=== PATIENT | female | born 1955 | race Two or more races ===

== ENCOUNTER → 2016-11-29 | Outpatient (CLI) | payer MEDICARE, OTHER ==
--- NOTE | ~2016-11-29 | CR63 ---
[facility] A Service of [facility] [place] RADIOLOGY TEXT RESULTS PATIENT: RAY ALCANTARA LOCATION: [facility] : 59 UNIT #: [id number] AGE: [address]: PASCUAL QUINTERO APRN SEX: F ORDER DR: [id number] [id number] [facility]. [place], [place] [address] [id number] O MR#: [id number] Acc #: [id number] NAME: RAY ALCANTARA : 1955 SEX: F STUDY DATE/TIME: 11/29/2016 9:38 UNIT: [facility] ROOM: STUDY DESCRIPTION: CR Chest 2 View Attending Physician: Marisol Quintero Aprn Referring Physician: Marisol Quintero Aprn Ordering Physician: Physician Non-Staff Primary Care Physician: Guille Mendez M.D. MEDICAL IMAGING REPORT This report is preliminary unless electronic signature is present EXAM PA and lateral chest. INDICATION 61-year-old female with wheezing cough. Symptoms for 1 week. COMPARISON STUDIES No comparisons. FINDINGS There is mid and lower zone interstitial opacities and some low volume inspiration. The interstitial opacities may be infectious or inflammatory or possibly edema. Correlate clinically. Heart size upper normal. Degenerative changes thoracic spine. IMPRESSION Mid and lower zone interstitial opacities. Findings are nonspecific and may be infectious, inflammatory, or possibly edema. Correlate clinically. Follow up to clearing is recommended. Dictated by... Joey Vazquez M.D. THIS IS AN ELECTRONICALLY VERIFIED REPORT Joey Vazquez M.D. at 11/29/2016 4:39 PM ARS/yelitza TD: 11/29/2016 10:53 JOB #: [id number] MEDICAL IMAGING REPORT [facility] A Service [facility] RADIOLOGY TEXT RESULTS PATIENT: RAY ALCANTARA LOCATION: [facility] : 59 UNIT #: [id number] AGE: [address]: PASCUAL QUINTERO,CERTIFIED REAL ESTATE APPRAISER SEX: F ORDER DR: COPY
== END | disposition home or self-care (01) ==
LOC: CRAD 09:23
DX: R06.2 Wheezing (principal); R05 Cough; J98.4 Other disorders of lung
CPT/HCPCS: 71020